=== PATIENT | female | born 1995 | race Caucasian/White ===

== ENCOUNTER 2022-11-11 01:41 | Outpatient (CLI) | payer OTHER, SELFPAY ==
--- NOTE | 2022-11-11 | DI.US_ITS ---
Exam(s) US OB CHUCHO WEIGHT EXAM: US OB CHUCHO WEIGHT CLINICAL HISTORY: GROWTH, Z34.83 FAX [phone]. COMPARISON: US US OB 2-3 TRIMESTER from 08/07/2022 TECHNIQUE: Transabdominal obstetrical ultrasound performed. FINDINGS: Sonographic images demonstrate a single intrauterine gestation in cephalic position. heart rate motion is Dopplered at: 132 bpm. Placenta: Posterior, grade 2. Amniotic fluid index: 9.5 cm. Largest pocket of fluid measures 3.4 cm. Amount of fluid is within norm al limits. Biometric measurements correspond to 33 weeks 4 days Estimated weight 2264 grams 23rd percentile IMPRESSION: Single live intrauterine gestation measuring at the low normal range for size. DATA REPOSITORY:
== END 2022-11-11 02:01 ==
PROVIDERS: Visit Provider Family Medicine
DX: Z34.83 Encounter for supervision of other normal pregnancy, third trimester (principal); Z3A.33 33 weeks gestation of pregnancy
CPT/HCPCS: 76816

== ENCOUNTER 2022-12-12 02:48 | Inpatient (IN) | payer OTHER, SELFPAY ==
[2022-12-12] VITALS (10 sets, daily range): BP systolic 120–152; BP diastolic 66–88; PULSE 91–113; RESP 16–18; TEMP 36.6–37.1; O2SAT 97–98
--- NOTE | 2022-12-12 02:51 | W.PM.OBHPL1 ---
Date of service: 12/12/22 Time of Service: 02:51 Assessment and Plan Assessment and plan (1) : Status: Acute Assessment and plan: Term, active labor Given low risk, Cat 1 strip, GBS neg, clear AF will expect No increased risk for PPH or SD Encourage position changes, hydration Nitrous at bedside. OB-HPI Labor/Delivery History of Present Illness Reason for Visit: PRE-DELLA Chief Complaint: Uterine Contractions; Suspected Rupture of Membranes , Associated Signs and Symptoms of Suspected ROM: clear AF, pooling, pos ferning earlier this evening ; Suspected Labor. History of Present Narrative: at 39 weeks - ROM ~4pm 12/11 (~10 hrs ago). Ctx onset ~ 1 AM. Clear AF, good FMVT, no URI sx, no fever. Plans , , avoid epidural, open to nitrous. No hx GDM or LGA infants - low risk for SD in current PFSH All Active Problems (Updated 12/12/22 @ 03:02 by Duglas Jarquin) (Acute) Social History Smoking/Tobacco Use Status: Never Smoking risk assessment performed?: Yes Alcohol Intake: current Alcohol Intake frequency: holidays/special occasions only Drug use: Never Exam Physical Exam Vital signs: Temp Pulse Resp BP Pulse Ox 36.8 C 113 H 18 134/78 98 12/12/22 02:13 12/12/22 02:13 12/12/22 02:13 12/12/22 02:13 12/12/22 02:13 Narrative: Alert, comfortable, focussed on ctx lungs - clear cvs - reg, no murmur abd - firm with q 4-5 ctx Fundal HT - 36 cm, vtx by daija ext - stable pedal edema - 1+ Detailed Labor and Delivery Exam Dilation: 3 Effacement (%): 60 station: -2 Position: OA Cervix position: posterior Consistency: medium Helm Score: Cervical Points Exam 0 1 2 3 Dilation Closed 1-2cm 3-4 cm 5-6cm Effacement 0-30% 40-50% 60-70% 80% Consistency Firm Medium Soft Station -3 -2 -1,0 +1,+2 Position Posterior Mid Anterior Amniotic Membrane Status: Ruptured Rupture Method: Spontaneous Amniotic Fluid: Clear Pooling: Positive Ferning: Present Contraction Frequency(min): q 4-5 Contraction Duration(sec): 60-90 Fetus A Heart Rate Baseline: 135 Variability: Moderate (6-25 BPM) Categories: Category I Date of Membrane Rupture: 12/11/22 Time of Membrane Rupture: 16:00 Risk Assessment Risk for Shoulder Dystocia Increased Risk?: No Risk for Post- Hemorrhage At Risk?: No Risks Reviewed Risks Reviewed Upon Admission: Yes
[2022-12-12 03:22] LABS: Source Nasal/Nares
[2022-12-12 03:32] LABS: HCT 39.7 % (36.0-46.0); MCH 31.8 pg (27.0-33.0); MCHC 35.3 % (32.0-36.0); MCV 90 fL (80-95); MPV 9.5 fL (8.0-11.0); Platelet Count 372 10^3/uL (130-400); RDW 12.8 % (11.7-14.6); RDW-SD 42.1 fL; WBC 19.52 10^3/uL (4.4-10.8)
--- NOTE | 2022-12-12 03:44 | W.PM.OBNL1 ---
Date of service: 12/12/22 Time of Service: 03:44 Pelvic Exam Dilation: 5 Effacement (%): 80 station: 0 Position: OT Contractions Contraction Frequency(min): q2-3 Contraction Duration(sec): 90 Intensity: Strong Fetus A Assessment Note: EFM - nl baseline and mod variability, no decels Assessment and Plan Assessment and plan (1) : Status: Acute Assessment and plan: Term, active labor Given low risk, Cat 1 strip, GBS neg, clear AF will expect No increased risk for PPH or SD Encourage position changes, hydration Nitrous at bedside. Objective Abnormal lab results 12/12/22 Range/Units 03:14 WBC 19.52 H (4.4-10.8) 10^3/uL Temp Pulse Resp BP Pulse Ox 36.8 C 113 H 18 134/78 98 12/12/22 02:13 12/12/22 02:13 12/12/22 02:13 12/12/22 02:13 12/12/22 02:13 Laboratory Results WBC 19.52 10^3/uL (4.4-10.8) H 12/12/22 03:14 RBC 4.40 10^6/uL (3.93-5.22) 12/12/22 03:14 Hgb 14.0 g/dL (11.2-15.7) 12/12/22 03:14 Hct 39.7 % (36.0-46.0) 12/12/22 03:14 MCV 90 fL (80-95) 12/12/22 03:14 MCH 31.8 pg (27.0-33.0) 12/12/22 03:14 MCHC 35.3 % (32.0-36.0) 12/12/22 03:14 RDW 12.8 % (11.7-14.6) 12/12/22 03:14 Plt Count 372 10^3/uL (130-400) 12/12/22 03:14 MPV 9.5 fL (8.0-11.0) 12/12/22 03:14 COVID-19 Source Nasal/Nares 12/12/22 03:17 Results Hemoglobin/Hematocrit: Hgb 14.0 g/dL (11.2-15.7) 12/12/22 03:14 Hct 39.7 % (36.0-46.0) 12/12/22 03:14 Abnormal Lab Findings: Abnormal Labs 12/12/22 03:14 WBC 19.52 H Additional Findings Results: Active labor - inc intensity and freq of ctx. Expected cervical change and descent Maternal and wellbeing P: Expect Support position changes, nitrous trial. S. Genereaux
[2022-12-12 03:54] LABS: COVID-19 PCR Negative (Negative)
[2022-12-12] MEDS: Oxytocin 10 UNITS/ML VIAL IM (04:10)
--- NOTE | 2022-12-12 04:22 | W.OBDELIVERY ---
Date of service: 12/12/22 Time of Service: 04:23 OB Labor/ Delivery Information Baby A Delivery Delivery Method: Spontaneaous Presentation: Vertex Cephalic Position: Vertex Vertex Position: Right Occipital Anterior Cord Description-Baby A: 3 Vessels Amniotic Fluid: Clear Estimated Blood Loss: 250 cc Delivery Outcome: Liveborn Infant Complications: none Note: Tight nuchal cord times one - delivered through 2-3 pushes from 8 cm to . steady controlled del of head (SLAVA) and body spont resp effort - infant to mat chest - [id number] 8/9 firm fund ~ umbilicus - IM pit given - cord bloods obtained Spont intact placenta, no calcifications, central cord, no missing cotelydons EBL 250 cc No perineal tears or trauma. No PPHEM or SD. Providers Doctor: Duglas Jarquin Nurse: Sasha Diop Nurse: Cceilia Cardenas Labor/Delivery Information Number of Babies in Womb: 1 Steroids Given: None Reason Steroids Not Administered: N/A Group Beta Strep: Negative Antibiotics Administered: No Maternal Complications: Precipitous Labor(<3hrs) Shoulder Dystocia: No Stages of Labor Onset of Labor Date: 12/12/22 Onset of Labor Time: 01:00 Complete Dilatation Date: 12/12/22 Complete Dilatation Time: 04:01 Labor - Stage 1 Duration: 3 hours and 1 minutes ROM Baby A: 12/11/22 ROM Baby A: 16:00 ROM Total Time- Baby A: [id number] Infant Delivery Date-Baby A: 12/12/22 Delivery Time-Baby A: 04:03 Labor Stage 2 Duration: 2 minutes Placenta Delivery Date-Baby A: 12/12/22 Total Length of Labor-Baby A: 3 hours and 3 minutes Placenta Cultured: No Baby A Infant Gender: Male Gestational Status: Term (39-41.6 wks) Gestational Age in Weeks/Days: 39 Weeks and 4 Days Score-1 Minute Interval(Baby A) Heart Rate-1 minute: 100 BPM or Greater Respiratory Effort- 1 minute: Spontaneous/Strong Cry Muscle Tone-1 minute: Minimal Flexion/Extension Reflex Response-1 minute: Prompt Response Color-1 minute: Bluish Hands or Feet Total Score-1 minute: 8 Score-5 Minute Interval(Baby A) Heart Rate- 5 minute: 100 BPM or Greater Respiratory Effort-5 minute: Spontaneous/Strong Cry Muscle Tone-5 minute: Active Movement Reflex Response-5 minute: Prompt Response Color-5 minute: Bluish Hands or Feet Total Score- 5 minute: 9
[2022-12-12] MEDS: Ibuprofen 600 MG TAB PO ×3 (05:38→20:43)
--- NOTE | 2022-12-13 07:03 | DSE_ITS ---
Date of service: 12/13/22 Time of Service: 07:03 DS: Diagnosis Discharge Diagnosis (1) : Status: Acute Asessment and Plan: Met all self-care expectations. Lochia minimal, firm fundus @ umb off to slow start - finding nipple gao and pumping/supplementation help BP's good Third tri bilat pedal edema persists Showered, active, PO intake good D/C'd today with boarder status given infant under bililites F/u scheduled 12/16 with Karen geronimo check Shakira Jarquin Discharge Plan Disposition Patient Disposition: Home Condition: Good Discharge Details Reason For Visit: LABOR Admit Date/Time: 12/12/22 02:48 Admit Provider: Duglas Jarquin Attending Provider: Duglas Jarquin Hospital Course Hospital Course: as above Discharge Instructions Activity:: Activity as Tolerated Equipment/Supplies:: breast pump Diet:: As Tolerated Discharge Orders Discharge Orders: Discharge Order (Routine); Ordered 12/13/22 Ordered By: Duglas Jarquin Discharge Data Discharge Comment: will set up f/u appt in for 12/16 OB:DS Summary Summary Vaginal Delivery Method: Spontaneaous Episiotomy Description: None Laceration Description: None Contraception Discussed Contraception Discussed: Yes, [place] Infant Gender-Baby A: Male Status at Discharge Functional status at discharge: independent ambulation Overall status at discharge: patient is back to baseline Mental Status: mental status grossly normal Speech and Movement: speech and movement normal Mood: congruent mood Affect: normal affect Hospital Course as above Exam Physical Exam Vital signs: Temp Pulse Resp BP Pulse Ox 36.7 C 102 H 16 120/74 97 12/12/22 19:34 12/12/22 19:34 12/12/22 19:34 12/12/22 19:34 12/12/22 19:34 Narrative: Bright, alert, comfortable lungs - clear cv s- reg, no murmur abd - firm ut @ umb 1+ bilat pedal edema perineum - no lacs or trauma PFSH All Active Problems (Updated 12/12/22 @ 03:02 by Duglas Jarquin) (Acute) Social History Smoking/Tobacco Use Status: Never Smoking risk assessment performed?: Yes Alcohol Intake: current Alcohol Intake frequency: holidays/special occasions only Drug use: Never Do you feel safe at home: Yes Do you feel safe in your relationship?: Yes DS: Data Vitals/I&O Vitals and I&O: Vital Signs Temperature 36.7 C 12/12/22 19:34 Temperature Source Oral 12/12/22 05:00 Pulse 102 H 12/12/22 19:34 Pulse Rhythm Regular 12/12/22 19:34 Respiratory Rate 16 12/12/22 19:34 Respiratory Depth Normal 12/12/22 19:34 Blood Pressure 120/74 12/12/22 19:34 Blood Pressure Mean 89 12/12/22 19:34 Pulse Oximetry 97 12/12/22 19:34 Pain Level 3 12/12/22 20:43 Intake & Output 12/12/22 12/12/22 12/13/22 11:59 23:59 11:59 Output Total 900 / 900 Balance -900 / -900 Weight 87.453 kg Output: Urine 900 / 900 Other: Urine Color Pale Pale
[2022-12-13] MEDS: Ibuprofen 600 MG TAB PO ×2 (09:22→22:09)
[2022-12-13 18:00] VITALS: BP 124/72; PULSE 100; RESP 20; TEMP 37.3
[2022-12-13 18:20] VITALS: TEMP 37.4
[2022-12-13] MEDS: Acetaminophen 325 MG TAB 650 MG PO (18:20)
[2022-12-13 19:23] VITALS: BP 120/72; PULSE 88; RESP 20; TEMP 38
[2022-12-13] MEDS: Docusate Sodium 100 MG CAP PO (21:01)
[2022-12-13 21:10] VITALS: BP 124/77; PULSE 90; RESP 18; TEMP 36.9
[2022-12-14] MEDS: Acetaminophen 325 MG TAB 650 MG PO ×3 (01:12→17:04)
[2022-12-14 08:20] VITALS: BP 109/72; PULSE 109; RESP 14; TEMP 36.6
[2022-12-14] MEDS: Docusate Sodium 100 MG CAP PO ×2 (08:21→17:05)
[2022-12-14] MEDS: Ibuprofen 600 MG TAB PO ×2 (08:22→17:03)
--- NOTE | 2022-12-14 12:50 | W.PM.OBDISCH ---
Date of service: 12/14/22 Time of Service: 12:50 DS: Diagnosis Discharge Diagnosis (1) : Status: Acute Asessment and Plan: Jaqueline is 2 days PP after normal without complication to a 2865g baby boy. Rh+ RI GBS-. Normal exam today. Fundus is firm below umbilicus, lochia normal. Passing flatus but no BM yet, will continue docusate. Pain well controlled. Nursing getting better, milk has just come in. Baby is under lights, but will DC mom. Fup in clinic in [address] Mcnulty. Discharge Plan Disposition Patient Disposition: Home Condition: Good Discharge Details Reason For Visit: LABOR Admit Date/Time: 12/12/22 02:48 Admit Provider: Duglas Jarquin Attending Provider: Duglas Jarquin Hospital Course Hospital Course: as above Discharge Instructions Stand Alone Forms: BC Post Vaginal Deliver Activity:: Activity as Tolerated Equipment/Supplies:: breast pump Diet:: As Tolerated Discharge Orders Discharge Orders: Discharge Order (Routine); Ordered 12/14/22 Ordered By: Bola Castro Discharge Data Discharge Comment: will set up f/u appt in for 12/16 OB:DS Summary Summary Vaginal Delivery Method: Spontaneaous Episiotomy Description: None Laceration Description: None Laceration Extension: N/A complications OB DS: none Time spent discussing smoking cessation with patient: 3 to 10 minutes Contraception Discussed Contraception Discussed: Yes, Infant Gender-Baby A: Male weight: 2865 g Disposition of Baby A: Home Status at Discharge Functional status at discharge: independent ambulation Overall status at discharge: patient is progressing back to baseline Mental Status: mental status grossly normal Speech and Movement: speech and movement normal Mood: congruent mood Affect: normal affect Time Spent with Patient providing and/or coordinating discharge services: Less than 30 minutes Hospital Course 27 y sp at 39 weeks, quick delivery without lacerations. Normal post course for mom. She is nursing and pumping, baby under bililites. Exam Physical Exam Vital signs: Temp Pulse Resp BP Pulse Ox 36.6 C 109 H 14 109/72 97 12/14/22 08:20 12/14/22 08:20 12/14/22 08:20 12/14/22 08:20 12/12/22 19:34 Vital Signs Reviewed: Yes Constitutional Constitutional: no acute distress HEENT Exam HEENT Exam: Normal Neck Exam Neck Exam: Normal Respiratory Exam Respiratory Exam: Normal Cardiovascular Exam Cardiovascular Exam: Normal Fundal Exam Fundus: Below Umbilicus and Firm Extremities Exam Extremity Exam: Normal Neurological Exam Neurological Exam: Normal Psychiatric Exam Psychiatric Exam: Normal PFSH All Active Problems (Acute) Social History Smoking/Tobacco Use Status: Never Smoking risk assessment performed?: Yes Alcohol Intake: current Alcohol Intake frequency: holidays/special occasions only Drug use: Never Do you feel safe at home: Yes Do you feel safe in your relationship?: Yes DS: Data Vitals/I&O Vitals and I&O: Vital Signs Temperature 36.6 C 12/14/22 08:20 Temperature Source Tympanic 12/14/22 08:20 Pulse 109 H 12/14/22 08:20 Pulse Rhythm Regular 12/14/22 08:20 Respiratory Rate 14 12/14/22 08:20 Respiratory Depth Normal 12/12/22 19:34 Blood Pressure 109/72 12/14/22 08:20 Blood Pressure Mean 89 12/12/22 19:34 Pulse Oximetry 97 12/12/22 19:34 Oxygen Delivery Method Room Air 12/14/22 08:20 Oxygen Flow Rate 0 12/14/22 08:20 Pain Level 5 12/14/22 08:22 Comment 12/13/22 18:00 Intake & Output 12/13/22 12/14/22 12/14/22 23:59 11:59 23:59 Other: Urine Color Yellow
[2022-12-14 17:03] VITALS: TEMP 38
[2022-12-14 17:04] VITALS: TEMP 37
== END 2022-12-14 20:53 | disposition home or self-care (01) | DRG 807 ==
PROVIDERS: Admitting Provider Family Medicine; Visit Provider Family Medicine
DX: O69.1XX0 Labor and delivery complicated by cord around neck, with compression, not applicable or unspecified (principal); Z37.0 Single live birth; O62.3 Precipitate labor; Z3A.39 39 weeks gestation of pregnancy
CPT/HCPCS: 85027; 86850; 86900; 86901; 87635; J2590

== ENCOUNTER 2024-08-10 22:20 | Inpatient (IN) | payer OTHER, SELFPAY ==
[2024-08-10 22:33] VITALS: BP 137/89; PULSE 94; RESP 16; TEMP 37.3; O2SAT 97
[2024-08-10 22:52] VITALS: BP 137/89; PULSE 94
--- NOTE | 2024-08-10 23:36 | W.PM.OBHPL1 ---
Date of service: 08/10/24 Time of Service: 23:36 OB-HPI Labor/Delivery History of Present Illness Reason for Visit: term labor Chief Complaint: Uterine Contractions; Suspected Labor. Comments: 29 yo with onset ctx ~7PM - despite shower and rest, ctx persist. No ROM, good FMVT NST 2 weeks ago cat 1, mild pedal edema past 2-3 weeks - heat related No GDM, neg GBS, quick labors, no HX PPH, DVT, Shoulders Neg UDS Hx congen mosaic downs last son, Dameon - born 2022 - he lived ~3 mo A neg, RH pos 8 and 20 we scans agree - EDC 08/25/2024 HX efficient labors 2-4 hrs NB wts: 8, 7 11, 6 5 No issues with Prepare survey No hx pp depression plans to exclusively breat feed plans NFPlanning. NKDA Meds: PN vits, Biotin, prn tylenol TDaP 05/17 History of Present Assessment: History Reviewed & Current Narrative: see above PFSH All Active Problems (Updated 08/10/24 @ 23:59 by Duglas Jarquin) (Acute) Social History Smoking/Tobacco Use Status: Never Smoking risk assessment performed?: Yes Alcohol Intake: former Drug use: Never Substance use type: does not use Housing: house Do you feel safe at home: Yes Do you feel safe in your relationship?: Yes History History 3 Para 2 Hx # Term Pregnancies Multiple births Hx # Pregnancies Ectopic pregnancies AB induced Hx Number of Living Children AB spontaneous Meds Allergies and Home Medications Allergies Allergy/AdvReac Type Severity Reaction Status Date / Time No Known Allergies Allergy Verified 12/12/22 05:22 Exam Physical Exam Vital signs: Temp Pulse Resp BP Pulse Ox 37.3 C 94 H 16 137/89 97 08/10/24 22:33 08/10/24 22:52 08/10/24 22:33 08/10/24 22:52 08/10/24 22:33 Vital Signs Reviewed: Yes Constitutional Comments: bright, alert, comfortable between CTX trace pedal edema L>R ambulating independently clear lungs CVS - reg, no murmur abd - firm ut with ctx, soft, non-tender in between CVX - 3 cm, 80%, 0 station, intact, vtx, soft FHT - cat 1 with mild/mod ctx 30-40 sec q 5 min, regular Detailed Labor and Delivery Exam Dilation: 3 Effacement (%): 80 station: 0 Position: OA Cervix position: anterior Consistency: soft Bradley Score: Cervical Points Exam 0 1 2 3 Dilation Closed 1-2cm 3-4 cm 5-6cm Effacement 0-30% 40-50% 60-70% 80% Consistency Firm Medium Soft Station -3 -2 -1,0 +1,+2 Position Posterior Mid Anterior BRADLEY Score(Cervical Ripeness Score): 11 Amniotic Membrane Status: Intact Contraction Frequency(min): q 5 Contraction Duration(sec): 30+ Contraction Intensity: Mild/Moderate Fetus A Heart Rate Baseline: 125 Monitor Accelerations: 15 X 15 Monitor Decelerations: None Variability: Moderate (6-25 BPM) Presentation: Vertex Categories: Category I Est. Weight: 3400 kg Assessment Note: well being Results Results Group Beta Strep: Negative Blood Type: A+ Rubella Status: Immune Varicella Immunity: Not Tested Additional Findings Results: Assess: Mayternal and wellbeing early labor admit given hx rapid labora routine admission labs, HL, intermittent FHT and routine vitals rest, ambulate Expect Risk Assessment Risk for Shoulder Dystocia Increased Risk?: No Counseling: in office Date/Initial: various SHG Risk for Pre-Eclampsia Daily Dose ASA Indicated: No Risks Reviewed Risks Reviewed Upon Admission: Yes
[2024-08-11] VITALS (21 sets, daily range): BP systolic 110–142; BP diastolic 66–82; PULSE 74–114; RESP 16–20; TEMP 36.7–37.1; O2SAT 83–100
[2024-08-11 00:05] LABS: HCT 37.6 % (36.0-46.0); HGB 13.3 g/dL (11.2-15.7); MCH 31.9 pg (27.0-33.0); MCHC 35.4 % (32.0-36.0); MCV 90 fL (80-95); MPV 9.4 fL (8.0-11.0); Platelet Count 271 10^3/uL (130-400); RBC 4.17 10^6/uL (3.93-5.22); RDW 12.7 % (11.7-14.6); RDW-SD 41.2 fL; WBC 12.55 10^3/uL (4.4-10.8)
--- NOTE | 2024-08-11 02:22 | PGE_ITS ---
Date of service: 08/11/24 Time of Service: 02:22 Objective Abnormal lab results 08/10/24 Range/Units 23:54 WBC 12.55 H (4.4-10.8) 10^3/uL Temp Pulse Resp BP Pulse Ox 36.8 C 84 16 116/70 98 08/11/24 01:03 08/11/24 01:03 08/11/24 01:03 08/11/24 01:03 08/11/24 01:03 Laboratory Results WBC 12.55 10^3/uL (4.4-10.8) H 08/10/24 23:54 RBC 4.17 10^6/uL (3.93-5.22) 08/10/24 23:54 Hgb 13.3 g/dL (11.2-15.7) 08/10/24 23:54 Hct 37.6 % (36.0-46.0) 08/10/24 23:54 MCV 90 fL (80-95) 08/10/24 23:54 MCH 31.9 pg (27.0-33.0) 08/10/24 23:54 MCHC 35.4 % (32.0-36.0) 08/10/24 23:54 RDW 12.7 % (11.7-14.6) 08/10/24 23:54 Plt Count 271 10^3/uL (130-400) 08/10/24 23:54 MPV 9.4 fL (8.0-11.0) 08/10/24 23:54 ABO/Rh A Positive 08/10/24 23:54 Antibody Screen NEGATIVE 08/10/24 23:54 Vital Signs Reviewed: Yes Subjective Patient Reports: No new Complaints Interval history since last seen: more intense ctx - lasting longer good fmvt heating pad effective on back up to pee, taking po fluids well difficult iv placement - will hold off given pt prefernce and low risk for PPH. 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 Maternal and wellbeing With shared decison making - AROM during peak of ctx - clear AF, no decels/no cord P: cont excellent partner support, Expect S. Genereaux Results Hemoglobin/Hematocrit: Hgb 13.3 g/dL (11.2-15.7) 08/10/24 23:54 Hct 37.6 % (36.0-46.0) 08/10/24 23:54 Abnormal Lab Findings: Abnormal Labs 08/10/24 23:54 WBC 12.55 H
--- NOTE | 2024-08-11 05:21 | W.PM.OBNL1 ---
Date of service: 08/11/24 Time of Service: 05:21 Objective Abnormal lab results 08/10/24 Range/Units 23:54 WBC 12.55 H (4.4-10.8) 10^3/uL Temp Pulse Resp BP Pulse Ox 36.7 C 97 H 18 125/82 97 08/11/24 04:25 08/11/24 04:25 08/11/24 04:25 08/11/24 04:25 08/11/24 04:25 Laboratory Results WBC 12.55 10^3/uL (4.4-10.8) H 08/10/24 23:54 RBC 4.17 10^6/uL (3.93-5.22) 08/10/24 23:54 Hgb 13.3 g/dL (11.2-15.7) 08/10/24 23:54 Hct 37.6 % (36.0-46.0) 08/10/24 23:54 MCV 90 fL (80-95) 08/10/24 23:54 MCH 31.9 pg (27.0-33.0) 08/10/24 23:54 MCHC 35.4 % (32.0-36.0) 08/10/24 23:54 RDW 12.7 % (11.7-14.6) 08/10/24 23:54 Plt Count 271 10^3/uL (130-400) 08/10/24 23:54 MPV 9.4 fL (8.0-11.0) 08/10/24 23:54 ABO/Rh A Positive 08/10/24 23:54 Antibody Screen NEGATIVE 08/10/24 23:54 Subjective Patient Reports: New Complaints Interval history since last seen: Intense, long ctx clear AF, good mvmt O: FHT - 130's, accels externally CVX - 8 cm/90%/+2 - no caput Nitrous - giving a try for labor discomfort A: maternal and wellbeing Steady descent and dilation - may be nearing transition P: support with partner, nitrous, position changes Expect S. Genereaux Results Hemoglobin/Hematocrit: Hgb 13.3 g/dL (11.2-15.7) 08/10/24 23:54 Hct 37.6 % (36.0-46.0) 08/10/24 23:54 Abnormal Lab Findings: Abnormal Labs 08/10/24 23:54 WBC 12.55 H
[2024-08-11] MEDS: Oxytocin 10 UNITS/ML VIAL IM (05:55)
--- NOTE | 2024-08-11 06:12 | W.OBDELIVERY ---
Date of service: 08/11/24 Time of Service: 06:12 OB Labor/ Delivery Information Baby A Delivery Delivery Method: Spontaneaous Presentation: Cephalic Cephalic Position: Vertex Vertex Position: Left Occipital Anterior Cord Description-Baby A: 3 Vessels Cord Description Comment: nl 3v cord Amniotic Fluid: Clear Estimated Blood Loss: 250 cc - minimal Delivery Outcome: Liveborn Infant Complications: none Infant Transferred: Remains with Mother Providers Doctor: Duglas Jarquin Labor/Delivery Information Number of Babies in Womb: 1 Steroids Given: None Group Beta Strep: Negative Rubella Status: Immune Blood Type: A+ Varicella Immunity: Not Tested Maternal Complications: None Shoulder Dystocia: No Stages of Labor Onset of Labor Date: 08/10/24 Onset of Labor Time: 20:00 ROM Baby A: 08/11/24 ROM Baby A: 02:15 Score-1 Minute Interval(Baby A) Heart Rate-1 minute: 100 BPM or Greater Respiratory Effort- 1 minute: Slow Respiration/Weak Cry Muscle Tone-1 minute: Active Movement Reflex Response-1 minute: Minimal Response Color-1 minute: Bluish Hands or Feet Score-5 Minute Interval(Baby A) Heart Rate- 5 minute: 100 BPM or Greater Respiratory Effort-5 minute: Spontaneous/Strong Cry Reflex Response-5 minute: Minimal Response Color-5 minute: Bluish Hands or Feet Note: 29 yo at 38 weeks. Spont labor - progressed steadily to complete - brief nitrous use. with 4-5 pushes KRISTA, clear AF tight nuchal cord - delivered through easy shoulders to mat abd - dried/stimuylated - spont resp 7/8 delayed cord clamp ~2 min 3v cord, spont intact placents ~20 min post delivery firm fundus @ umb IM pitocin given between and placenta delivery EBL - scant - ~200 cc No perineal, urethral, clitoral, vag tears A: - minimal bleeding, no tears P: routine pp care, support Shakira Jarquin
[2024-08-11] MEDS: Acetaminophen 325 MG TAB 650 MG PO ×2 (08:14→14:23)
[2024-08-11] MEDS: Ibuprofen 600 MG TAB PO ×2 (08:15→14:23)
[2024-08-12] MEDS: Acetaminophen 325 MG TAB 650 MG PO ×2 (00:57→10:20)
[2024-08-12] MEDS: Ibuprofen 600 MG TAB PO ×2 (01:00→10:20)
[2024-08-12 04:58] VITALS: BP 124/60; PULSE 84; RESP 16; TEMP 36.8
[2024-08-12 07:20] LABS: HGB 12.4 g/dL (11.2-15.7); MCH 31.6 pg (27.0-33.0); MCHC 34.4 % (32.0-36.0); MCV 92 fL (80-95); MPV 9.8 fL (8.0-11.0); Platelet Count 254 10^3/uL (130-400); RBC 3.92 10^6/uL (3.93-5.22); RDW-SD 43.7 fL; WBC 12.83 10^3/uL (4.4-10.8)
[2024-08-12 08:30] VITALS: BP 111/75; PULSE 97; RESP 16; TEMP 36.8; O2SAT 100
--- NOTE | 2024-08-12 12:28 | DSE_ITS ---
Date of service: 08/12/24 Time of Service: 12:28 Discharge Plan Disposition Condition: Good Condition: Good Discharge Details Reason For Visit: Labor Admit Date/Time: 08/10/24 22:20 Admit Provider: Duglas Jarquin Attending Provider: Duglas Jarquin Primary Care Provider: Unknown,Unknown Hospital Course Hospital Course: , nl post course, doing all self care eager to get home, feels confident is experienced Home Meds and New Rx's Prescriptions: No Action One-A-Day -1 27 mg iron- 800 mcg-235 mg capsule 1 cap PO .qd Discharge Instructions Activity:: Activity as Tolerated Activity:: Activity as Tolerated Equipment/Supplies:: has own breast pump Diet:: As Tolerated Discharge Data Discharge Physician: Duglas Jarquin OB:DS Summary Summary Vaginal Delivery Method: Spontaneaous Episiotomy Description: None Laceration Description: None Laceration Extension: N/A Contraception Discussed Contraception Discussed: Yes, Gender-Baby A: Male weight: 3065 g Status at Discharge Functional status at discharge: independent ambulation Overall status at discharge: patient is back to baseline Mental Status: mental status grossly normal Speech and Movement: speech and movement normal Mood: congruent mood Affect: normal affect Quality:SDOH Health Related Social Needs: No Data to Display Exam Physical Exam Vital signs: Temp Pulse Resp BP Pulse Ox 36.8 C 84 16 124/60 97 08/12/24 04:58 08/12/24 04:58 08/12/24 04:58 08/12/24 04:58 08/11/24 14:12 Vital Signs Reviewed: Yes Narrative: mom doing well doing all self care dec lochia expected uterine cramoping aith BF sessions NFP for family planning F/u set at [place] Fundal Exam Fundus: Below Umbilicus and Firm PFSH All Active Problems (Updated 08/10/24 @ 23:59 by Duglas Jarquin) (Acute) Social History Smoking/Tobacco Use Status: Never Smoking risk assessment performed?: Yes Alcohol Intake: former Drug use: Never Substance use type: does not use Housing: house Do you feel safe at home: Yes Do you feel safe in your relationship?: Yes History History 3 Para 2 Hx # Term Pregnancies Multiple births Hx # Pregnancies Ectopic pregnancies AB induced Hx Number of Living Children AB spontaneous DS: Data Vitals/I&O Vitals and I&O: Vital Signs Temperature 36.8 C 08/12/24 04:58 Temperature Source Oral 08/12/24 04:58 Pulse 84 08/12/24 04:58 Pulse Rhythm Regular 08/12/24 02:00 Respiratory Rate 16 08/12/24 04:58 Blood Pressure 124/60 08/12/24 04:58 Blood Pressure Mean 81 08/12/24 04:58 Pulse Oximetry 97 08/11/24 14:12 Oxygen Delivery Method Room Air 08/10/24 22:33 Oxygen Flow Rate 0 08/10/24 22:33 Intake & Output 08/11/24 08/12/24 08/12/24 23:59 11:59 23:59 Output Total 850 / 1300 Balance -850 / 140 Output: Urine 850 / 1300 Other: Urine Color Yellow Data Completed and Pending Labs on day of discharge: Labs from last 24 hours 08/12/24 06:05 WBC 12.83 H RBC 3.92 L Hgb 12.4 Hct 36.0 MCV 92 MCH 31.6 MCHC 34.4 RDW 13.0 Plt Count 254 MPV 9.8
== END 2024-08-12 15:30 | disposition home or self-care (01) | DRG 807 ==
PROVIDERS: Admitting Provider Family Medicine; Visit Provider Family Medicine
DX: O69.1XX0 Labor and delivery complicated by cord around neck, with compression, not applicable or unspecified (principal); Z37.0 Single live birth; Z3A.39 39 weeks gestation of pregnancy
CPT/HCPCS: 00123; 36415; 85027; 86850; 86900; 86901; J2590

== ENCOUNTER 2025-08-21 17:37 | Inpatient (IN) | payer OTHER, SELFPAY ==
[2025-08-21] VITALS (12 sets, daily range): BP systolic 98–124; BP diastolic 62–78; PULSE 66–122; RESP 18; TEMP 36.4–36.9; O2SAT 100
--- NOTE | 2025-08-21 17:53 | W.PM.OBHPL1 ---
Date of service: 08/21/25 Time of Service: 17:53 Assessment and Plan Assessment and plan (1) : Status: Acute Assessment and plan: 30yo at 39.5 weeks with Rh+ RI GBS-. Uncomplicated , a few isolated elevated BPs, but recently normal. Contractions started at 230 this afternoon, and became more intense a couple of hours later. 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 She has had a healthy baby since then, and normal US during this , although she declined genetic testing. Anticipate routine labor care, although OB and Peds are notified of her labor. SVE on admission /-3. She declines epidural but would like to use nitrous. OB-HPI Labor/Delivery History of Present Illness Reason for Visit: Onset Labor Chief Complaint: Uterine Contractions. 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 Infant passed at 3 months of age. Health since that delivery. Review of Systems All systems reviewed & are unremarkable except as noted in HPI and below PFSH All Active Problems (Updated 08/21/25 @ 18:08 by Bola Castro) (Acute) Social History Smoking/Tobacco Use Status: Never Smoking risk assessment performed?: Yes Alcohol Intake: former Drug use: Never Substance use type: does not use Housing: house Do you feel safe at home: Yes Do you feel safe in your relationship?: Yes History History 5 Para 4 Hx # Term Pregnancies 4 Multiple births Hx # Pregnancies Ectopic pregnancies AB induced Hx Number of Living Children 3 AB spontaneous Meds Allergies and Home Medications Allergies Allergy/AdvReac Type Severity Reaction Status Date / Time No Known Allergies Allergy Verified 12/12/22 05:22 Home Medications ?Medication ?Instructions ?Recorded ?Confirmed ?Type vits 168-iron 27 mg-folic 1 cap PO .qd 08/11/24 08/11/24 History acid 800 mcg-omega3 235 mg capsule (One-A-Day -1) Exam Physical Exam Vital signs: Pulse BP 111 H 122/75 08/21/25 17:47 08/21/25 17:47 Vital Signs Reviewed: Yes Detailed Labor and Delivery Exam Dilation: 8 Effacement (%): 80 station: -3 Position: KRISTA Cervix position: anterior Consistency: soft Bradley Score: Cervical Points Exam 0 1 2 3 Dilation Closed 1-2cm 3-4 cm 5-6cm Effacement 0-30% 40-50% 60-70% 80% Consistency Firm Medium Soft Station -3 -2 -1,0 +1,+2 Position Posterior Mid Anterior BRADLEY Score(Cervical Ripeness Score): 10 Amniotic Membrane Status: Intact Monitor Mode: External Contraction Frequency(min): 3-4 Contraction Duration(sec): 60 Contraction Intensity: Moderate/Strong Fetus A Heart Rate Baseline: 125 Monitor Accelerations: 15 X 15 Monitor Decelerations: None Variability: Moderate (6-25 BPM) Presentation: Cephalic Categories: Category I Assessment Note: heart tracing is category 1, reactive. HEENT Exam HEENT Exam: Normal Respiratory Exam Respiratory Exam: Normal Cardiovascular Exam Cardiovascular Exam: Normal Abdominal Exam Abdominal Exam: Normal Exam Exam: Normal Extremities Exam Extremities Exam: Normal Neurological Exam Neurological Exam: Normal Results Results Group Beta Strep: Negative Blood Type: A+ Rubella Status: Immune Varicella Immunity: Not Tested Risk Assessment Risk for Shoulder Dystocia Increased Risk?: No Counseling: in office Date/Initial: various SHG Risk for Pre-Eclampsia Daily Dose ASA Indicated: No Risk for Post- Hemorrhage At Risk?: No Counseled re: Active Management: Yes Date/Initials: SLC Risks Reviewed Risks Reviewed Upon Admission: Yes
[2025-08-21 18:15] LABS: Abs Immature Grans 0.17 10^3/uL (0.0-0.06); HCT 41.1 % (36.0-46.0); HGB 14.6 g/dL (11.2-15.7); Immature Grans % 1.1 %; MCH 31.7 pg (27.0-33.0); MCHC 35.5 % (32.0-36.0); MCV 89 fL (80-95); MPV 9.3 fL (8.0-11.0); Platelet Count 315 10^3/uL (130-400); RBC 4.60 10^6/uL (3.93-5.22); RDW 12.5 % (11.7-14.6); RDW-SD 41.0 fL; WBC 16.02 10^3/uL (4.4-10.8)
[2025-08-21 18:34] LABS: Anion Gap 17.0 mmol/L (3-11); BUN 8 mg/dL (7-18); CO2 17.0 mmol/L (21.0-32.0); Calcium 9.1 mg/dL (8.5-10.1); Chloride 102 mmol/L (98-107); Estimated GFR 101.59 (mL/min/1.73m2); Glucose 87 mg/dL (74-106); Potassium 3.1 mmol/L (3.5-5.1); Sodium 136 mmol/L (136-145)
--- NOTE | 2025-08-21 19:03 | W.OBDELIVERY ---
Date of service: 08/21/25 Time of Service: 19:04 OB Labor/ Delivery Information Baby A Delivery Delivery Method: Spontaneaous Presentation: Cephalic Cephalic Position: Vertex Vertex Position: Left Occipital Anterior Breech Position: N/A Cord Description-Baby A: 3 Vessels Amniotic Fluid: Clear Estimated Blood Loss: 100cc Delivery Outcome: Liveborn Infant Transferred: Remains with Mother Note: 30yo [id number] sp with Rh+ RI GBS-, uncomplicated and labor. Mom presented at 8cm and quickly progressed to complete, baby was born in KRISTA position with minimal pushing. Baby was immediately placed on moms abdomen and stimulated. Apgars of 8 and 9. After 90 seconds, cord was clamped and cut. Placenta delivered spontaneously, complete, 3 vessel cord. Vaginal area was inspected for hemostasis, no lacerations or bleeding seen. Anticipate routine post care, DC home tomorrow. Providers Doctor: Bola Castro Nurse: Cecilia Cardenas Nurse: Sharmin Marin Labor/Delivery Information Number of Babies in Womb: 1 Steroids Given: None Reason Steroids Not Administered: N/A Group Beta Strep: Negative Antibiotics Administered: No Rubella Status: Immune Blood Type: A+ Varicella Immunity: Not Tested Stages of Labor Onset of Labor Date: 08/21/25 Onset of Labor Time: 13:45 Complete Dilatation Date: 08/21/25 Complete Dilatation Time: 18:36 Labor - Stage 1 Duration: 4 hours and 51 minutes ROM Baby A: 08/21/25 ROM Baby A: 18:25 Baby A Infant Gender: Male Gestational Status: Term (39-41.6 wks) Length-Baby A: 53.34 cm Score-1 Minute Interval(Baby A) Heart Rate-1 minute: 100 BPM or Greater Respiratory Effort- 1 minute: Slow Respiration/Weak Cry Muscle Tone-1 minute: Active Movement Reflex Response-1 minute: Prompt Response Color-1 minute: Bluish Hands or Feet Score-5 Minute Interval(Baby A) Heart Rate- 5 minute: 100 BPM or Greater Respiratory Effort-5 minute: Spontaneous/Strong Cry Muscle Tone-5 minute: Active Movement Reflex Response-5 minute: Prompt Response Color-5 minute: Bluish Hands or Feet
[2025-08-21] MEDS: Oxytocin 10 UNITS/ML VIAL IM (22:13)
[2025-08-21] MEDS: Acetaminophen 325 MG TAB 650 MG PO (22:28)
[2025-08-21] MEDS: Ibuprofen 600 MG TAB PO (22:28)
[2025-08-22 03:00] VITALS: BP 119/75; PULSE 66; RESP 18; TEMP 36.6
[2025-08-22 08:00] VITALS: BP 115/78; PULSE 86; RESP 16; TEMP 36.6; O2SAT 99
[2025-08-22] MEDS: Acetaminophen 325 MG TAB 650 MG PO ×2 (08:35→17:09)
[2025-08-22] MEDS: Ibuprofen 600 MG TAB PO ×2 (08:35→17:09)
[2025-08-22] MEDS: Hamamelis Leaf/Glycerin 100 EACH BOX PR (08:37)
[2025-08-22] MEDS: Dibucaine 1% 28 GM TUBE TP (08:37)
--- NOTE | 2025-08-22 17:19 | W.PM.OBPNV1 ---
Date of service: 08/22/25 Time of Service: 17:24 Assessment and Plan Assessment and plan (1) (normal spontaneous vaginal delivery): Status: Acute Assessment and plan: Jaqueline is doing well PP day 1. Pain well controlled with NSAIDs, voiding and passing gas. Lochia normal. Fundus firm, below umbilicus. Vitals normal. Nursing is fine when he is interested, although has been minimally interested. No other concerns. Anticipate DC home tomorrow. Subjective Subjective Patient comments: No complaints Sawyer baby status: Doing well and Strong Bonding Observed Sawyer feeding status: Exclusively breast feeding Narrative: Doing well, passing gas, voiding, pain well managed. Baby not very interested in nursing but does have a good latch when he does. Exam Physical Exam Vital signs: Temp Pulse Resp BP Pulse Ox 36.6 C 86 16 115/78 99 08/22/25 08:00 08/22/25 08:00 08/22/25 08:00 08/22/25 08:00 08/22/25 08:00 Constitutional Constitutional: no acute distress Fundal Exam Fundus: Below Umbilicus and Firm Neurological Exam Neurological Exam: Normal Results Hemoglobin/Hematocrit: Hgb 14.6 g/dL (11.2-15.7) 08/21/25 18:05 Hct 41.1 % (36.0-46.0) 08/21/25 18:05 Abnormal Lab Findings: Abnormal Labs 08/21/25 18:05 WBC 16.02 H Absolute Neutrophils 12.34 H Potassium 3.1 L Carbon Dioxide 17.0 L Anion Gap 17.0 H
[2025-08-22 20:00] VITALS: BP 113/75; PULSE 80; RESP 18; TEMP 36.6
[2025-08-22 20:05] VITALS: BP 113/75; PULSE 80; RESP 18; TEMP 36.6
[2025-08-23] MEDS: Ibuprofen 600 MG TAB PO ×2 (03:35→10:40)
[2025-08-23] MEDS: Acetaminophen 325 MG TAB 650 MG PO ×2 (03:35→10:40)
[2025-08-23 08:00] VITALS: BP 111/75; PULSE 81; RESP 17; TEMP 36.7; O2SAT 99
--- NOTE | 2025-08-23 09:02 | W.PM.OBDISCH ---
Date of service: 08/23/25 Time of Service: 09:02 DS: Diagnosis Discharge Diagnosis (1) (normal spontaneous vaginal delivery): Status: Acute Asessment and Plan: 30yo [id number] sp at term. Uncomplicated labor and delivery. Doing well post . Lochia moderate, pain well controlled with NSAIDs, voiding and passing flatus. Nursing is ok, she notes her babies usually feed better when they get home. She has been using a nipple shield and pumping some. No concerns. DC home today. Fup in clinic in 2 weeks. Discharge Plan Disposition Patient Disposition: Home Condition: Good Discharge Details Reason For Visit: Onset Labor Admit Date/Time: 08/21/25 17:37 Admit Provider: Bola Castro Attending Provider: Bola Castro Primary Care Provider: Duglas Jarquin [place] Meds and New Rx's Prescriptions: No Action One-A-Day -1 27 mg iron- 800 mcg-235 mg capsule 1 cap PO .qd Discharge Instructions Stand Alone Forms: BC Instructions, BC Post Vaginal Deliver Activity:: Activity as Tolerated Equipment/Supplies:: No Equipment Needed Diet:: As Tolerated Discharge Orders Discharge Orders: Discharge Order (Routine); Ordered 08/23/25 Ordered By: Bola Castro OB:DS Summary Summary Vaginal Delivery Method: Spontaneaous Episiotomy Description: None Laceration Description: None Laceration Extension: N/A Contraception Discussed Contraception Discussed: Yes Contraceptive Plan: Foam/Condoms, [place] Infant Gender-Baby A: Male weight: 3370 kg Disposition of Baby A: Home Status at Discharge Functional status at discharge: independent ambulation Overall status at discharge: patient is progressing back to baseline Mental Status: mental status grossly normal Speech and Movement: speech and movement normal Mood: congruent mood Affect: normal affect Time Spent with Patient providing and/or coordinating discharge services: Less than 30 minutes Exam Physical Exam Vital signs: Temp Pulse Resp BP Pulse Ox 36.7 C 81 17 111/75 99 08/23/25 08:00 08/23/25 08:00 08/23/25 08:00 08/23/25 08:00 08/23/25 08:00 Constitutional Constitutional: no acute distress Respiratory Exam Respiratory Exam: Normal Cardiovascular Exam Cardiovascular Exam: Normal Fundal Exam Fundus: Below Umbilicus and Firm PFSH All Active Problems (normal spontaneous vaginal delivery) (Acute) (Acute) Social History Smoking/Tobacco Use Status: Never Smoking risk assessment performed?: Yes Alcohol Intake: former Drug use: Never Substance use type: does not use Housing: house Do you feel safe at home: Yes Do you feel safe in your relationship?: Yes History History 5 Para 4 Hx # Term Pregnancies 4 Multiple births Hx # Pregnancies Ectopic pregnancies AB induced Hx Number of Living Children 3 AB spontaneous DS: Data Vitals/I&O Vitals and I&O: Vital Signs Temperature 36.7 C 08/23/25 08:00 Temperature Source Oral 08/23/25 08:00 Pulse 81 08/23/25 08:00 Pulse Rhythm Regular 08/22/25 20:00 Respiratory Rate 17 08/23/25 08:00 Respiratory Depth Normal 08/22/25 08:30 Blood Pressure 111/75 08/23/25 08:00 Blood Pressure Mean 87 08/23/25 08:00 Pulse Oximetry 99 08/23/25 08:00 Oxygen Delivery Method Room Air 08/21/25 18:02 Oxygen Flow Rate 0 08/21/25 18:02 Pain Level 3 08/23/25 03:35 Intake & Output 08/22/25 08/22/25 08/23/25 11:59 23:59 11:59 Output Total 700 / 700 Balance -700 / -700 Output: Urine 700 / 700 Other: Urine Color Pale Pale
[2025-08-23 15:16] VITALS: BP 117/59; PULSE 110
== END 2025-08-23 11:05 | disposition home or self-care (01) | DRG 807 ==
PROVIDERS: Admitting Provider Family Medicine; PCP Family Medicine; Visit Provider Family Medicine
DX: O80 Encounter for full-term uncomplicated delivery (principal); Z37.0 Single live birth; Z3A.39 39 weeks gestation of pregnancy
CPT/HCPCS: 00123; 80048; 86850; 86900; 86901; 85025; J2590